=== PATIENT | male | born 1940 | race Caucasian/White ===

== ENCOUNTER 2020-01-24 12:29 | Inpatient (IN) | payer OTHER ==
[2020-01-24] MEDS ORDERED: SODIUM CHLORIDE 2,395 ML IV ONE (12:51)
[2020-01-24 13:17] LABS: VENOUS PC02 35.2 mmHg (38-52); VENOUS PH 7.46 (7.31-7.41); VENOUS PO2 < 49 mmHg (28-48)
[2020-01-24 13:18] LABS: BASO % 0.2 % (0-2.0); EOS % 0.4 % (0-4.5); HEMATOCRIT 38.6 % (35.4-49); LYMPH % 4.8 % (8-40); MCHC 33.5 g/dl (32.0-35.9); MEAN CELL VOLUME 86.3 fl (80-96); MEAN PLT VOLUME 10.7 fl (7.5-11.1); MONO % 6.1 % (3.8-10.2); NEUT % 88.5 % (42.8-82.8); PLATELET COUNT 150 K/MM3 (134-434); RBC 4.48 M/mm3 (4.00-5.60); RDW 14.9 % (11.9-15.9); VENOUS BASE EXCESS 0.9 mmol/L (-2-2); WHITE BLOOD COUNT 12.8 K/mm3 (4.0-10.0)
[2020-01-24 13:25] LABS: INR 1.16 (0.83-1.09); PROTHROMBIN TIME (PATIENT) 13.7 SEC (9.7-13.0)
[2020-01-24 13:27] LABS: ACTIVATED PTT 28.5 SECONDS (25.2-36.5)
[2020-01-24 13:44] LABS: ALBUMIN 3.2 g/dl (3.4-5.0); ALK PHOS 93 U/L (45-117); ANION GAP 5 MMOL/L (8-16); BILIRUBIN,TOTAL 1.1 mg/dL (0.2-1); BLOOD UREA NITROGEN 22.1 mg/dL (7-18); CALCIUM 8.7 mg/dL (8.5-10.1); CHLORIDE 105 mmol/L (98-107); CO2 26 mmol/L (21-32); CREATININE 0.8 mg/dL (0.55-1.3); GLUCOSE,RANDOM 111 mg/dL (74-106); POTASSIUM 4.2 mmol/L (3.5-5.1); SGOT/AST 108 U/L (15-37); SGPT/ALT 107 U/L (13-61); SODIUM 136 mmol/L (136-145); TOT PROT 6.6 g/dl (6.4-8.2)
[2020-01-24 14:04] LABS: URINE APPEARANCE CLEAR; URINE BILIRUBIN NEGATIVE (NEGATIVE); URINE COLOR DK YELLOW; URINE GLUCOSE (UA) NEGATIVE (NEGATIVE); URINE KETONE TRACE (NEGATIVE); URINE LEUK ESTERASE NEGATIVE (NEGATIVE); URINE NITRITE NEGATIVE (NEGATIVE); URINE PROTEIN TRACE (NEGATIVE)
[2020-01-24] MEDS ORDERED: CEFTRIAXONE 1 GM in DEXTROSE 5%-WATER - 100 ML IVPB ONE (14:09)
[2020-01-24] MEDS ORDERED: DOXYCYCLINE HYCLATE 100 MG CAPSULE PO ONE ×2 (14:09→14:40)
[2020-01-24] MEDS ORDERED: AZITHROMYCIN 250 MG TABLET PO ONE (14:09)
[2020-01-24] MEDS ORDERED: AZITHROMYCIN 250 MG TABLET ONE (14:39)
[2020-01-24] MEDS ORDERED: CEFTRIAXONE 1 GM/50 ML BAG ONE (14:40)
[2020-01-24 14:41] LABS: LDH 293 U/L (87-246)
[2020-01-24] MEDS ORDERED: ACETAMINOPHEN 325 MG TABLET (FP) PO PRN (15:43)
[2020-01-24] MEDS: SODIUM CHLORIDE 1,000 ML IV SCH (15:48)
[2020-01-24] MEDS ORDERED: ENOXAPARIN NA (PORCINE) 40 MG/0.4 ML DISP.SYRIN SQ ONE (16:08)
[2020-01-24] MEDS ORDERED: PIPERACILLIN/TAZOBACTAM 3.375 GM VIAL IVPB ONE (17:53)
[2020-01-24] MEDS ORDERED: DEXTROSE 5%-WATER - 50 ML IVPB ONE (17:53)
[2020-01-24] MEDS: PIPERACILLIN/TAZOB 3.375 GM 3.375 GM in DEXTROSE 5%-WATER - 50 ML IVPB SCH (18:05)
[2020-01-24] MEDS: ENOXAPARIN NA (PORCINE) 40 MG/0.4 ML DISP.SYRIN SQ SCH (18:40)
[2020-01-25] MEDS ORDERED: PIPERACILLIN/TAZOBACTAM 3.375 GM VIAL IVPB ONE ×3 (01:23→17:30)
[2020-01-25] MEDS ORDERED: DEXTROSE 5%-WATER - 50 ML IVPB ONE ×3 (01:24→17:30)
[2020-01-25] MEDS: PIPERACILLIN/TAZOB 3.375 GM 3.375 GM in DEXTROSE 5%-WATER - 50 ML IVPB SCH ×3 (01:57→17:37)
[2020-01-25 06:44] LABS: BASO % 0.1 % (0-2.0); EOS % 0.8 % (0-4.5); HEMATOCRIT 37.6 % (35.4-49); HEMOGLOBIN 12.7 GM/dL (11.7-16.9); LYMPH % 3.2 % (8-40); MCH 29.2 pg (25.7-33.7); MCHC 33.7 g/dl (32.0-35.9); MEAN CELL VOLUME 86.6 fl (80-96); MONO % 4.6 % (3.8-10.2); NEUT % 91.3 % (42.8-82.8); PLATELET COUNT 125 K/MM3 (134-434); RBC 4.34 M/mm3 (4.00-5.60); RDW 14.8 % (11.9-15.9); WHITE BLOOD COUNT 9.1 K/mm3 (4.0-10.0)
[2020-01-25 07:13] LABS: ALBUMIN 2.7 g/dl (3.4-5.0); BILIRUBIN,TOTAL 0.9 mg/dL (0.2-1); BLOOD UREA NITROGEN 15.6 mg/dL (7-18); CALCIUM 8.6 mg/dL (8.5-10.1); CREATININE 0.8 mg/dL (0.55-1.3); MAGNESIUM 2.1 mg/dL (1.8-2.4); PHOSPHOROUS 3.6 mg/dL (2.5-4.9); POTASSIUM 3.9 mmol/L (3.5-5.1)
[2020-01-25] MEDS ORDERED: CEFTRIAXONE 1 GM in DEXTROSE 5%-WATER - 50 ML IVPB SCH (10:00)
[2020-01-25] MEDS ORDERED: AZITHROMYCIN IVPB 500 MG/250 ML BAG IVPB SCH (10:00)
[2020-01-25 10:02] LABS: ANISOCYTOSIS 0; HELMET CELLS 0; HOWELL-JOLLY BODIES 0; MACROCYTOSIS 0; OVALOCYTE 0; PLATELET ESTIMATE DECREASED; ROULEAU 0; SICKELED CELLS 0; TARGET CELLS 0; TEAR DROP CELLS 0; TOXIC GRANULATION 0
[2020-01-25] MEDS: ENOXAPARIN NA (PORCINE) 40 MG/0.4 ML DISP.SYRIN SQ SCH (10:40)
[2020-01-25] MEDS: SODIUM CHLORIDE 1,000 ML IV SCH (17:39)
[2020-01-25 23:30] VITALS: BP 121/52; PULSE 82; TEMP 98.3
[2020-01-29 12:47] VITALS: BMI 28.0
== END 2020-01-25 22:45 | disposition left against medical advice (07) | DRG 194 ==
LOC: JER 12:29 → JERBED 14:12 → J4S 17:49
PROVIDERS: ADMIT Internal Medicine; ATTEND Internal Medicine
DX: J18.9 Pneumonia, unspecified organism (principal); A69.20 Lyme disease, unspecified; H91.90 Unspecified hearing loss, unspecified ear; R94.5 Abnormal results of liver function studies
CPT/HCPCS: 36415; 71045-TC-FY; 80053; 81003; 82728; 82803; 83605; 83615; 83735; 84100; 84484; 85025; 85379; 85610; 85651; 85730; 86140; 86618; 87040; 87086; 87476; 87899; 93005; 93010; 99285-25; U0003

== ENCOUNTER 2020-03-15 09:48 | Day surgery (SDC) | payer OTHER ==
[2020-03-14 18:01] VITALS: BMI 24.0
[2020-03-15 13:33] VITALS: BP 128/85; PULSE 68; TEMP 97.5
[2020-03-15 14:33] LABS: BF WBC & OTHER NUCLEATED CELLS 3707 /mm3
[2020-03-15 15:23] LABS: BODY FLUID BASOPHIL 4 %; BODY FLUID MONOCYTE 36 %; BODYL FLD EOSINOPHIL 41 %
[2020-03-16 14:07] LABS: BODY FLUID ALBUMIN 2.7 g/dL (Not Estab.)
--- NOTE | 2020-03-20 13:32 | PATH ---
Cytology Non-Gynecological Report Patient Name: MATY HORTA [facility]. Rec. #: [id number] /Age/Gender: 1940 (Age: 79) / M Account: [id number] Location: RADIOLOGY INTER Taken: 03/15/2020 Received: 03/16/2020 Reported: 03/20/2020 Physicians: Kamini Johnston M.D. Specimen(s) Received A: PLEURAL FLUID RECEIVED IN 50% B: PLEURAL FLUID RECEIVED FRESH Clinical History Pleural effusion Final Diagnosis A&B: PLEURAL FLUID, THORACENTESIS: SATISFACTORY FOR EVALUATION NO MALIGNANT CELLS IDENTIFIED. MESOTHELIAL CELLS, HISTIOCYTES AND PREDOMINANTLY CHRONIC INFLAMMATORY CELLS INCLUDING MANY EOSINOPHILS PRESENT. Electronically Signed Tom Hoover M.D. Gross Description A. Approximately 30cc of yellow fluid received fixed in 50% alcohol. One cytospin and one cellblock prepared. B. Approximately 800cc of yellow fluid received fresh. One cytospin and one cellblock prepared.
== END 2020-03-15 13:50 | disposition home or self-care (01) ==
LOC: JRADIR 09:48
PROVIDERS: ATTEND Internal Medicine
PROC: 0W993ZZ Drainage of Right Pleural Cavity, Percutaneous Approach (ICD-10-PCS; principal; 2020-03-15)
DX: J90 Pleural effusion, not elsewhere classified (principal)
CPT/HCPCS: 36415; 71045-TC-FY; 76942; 82042; 82150; 82465; 82945; 83615; 84157; 87070; 87075; 87102; 87116; 87205; 87206; 87210; 88108; 88305-TC

== ENCOUNTER 2021-04-09 11:55 | Emergency (ER) | payer OTHER ==
[2021-04-10 14:09] LABS: SARS-CoV-2 NAA Detected (Not Detected)
== END 2021-04-09 12:17 | disposition home or self-care (01) ==
LOC: JVIRT 11:55
DX: R50.9 Fever, unspecified (principal); R07.0 Pain in throat; Z11.52 Encounter for screening for COVID-19
CPT/HCPCS: C9803; Q3014-GT; U0003; U0005

== ENCOUNTER 2021-04-10 15:53 | Emergency (ER) | payer OTHER ==
[2021-04-10] MEDS ORDERED: CASIRIVIMAB/IMDEVIMAB 10 ML in SODIUM CHLORIDE 100 ML IVPB ONE (15:57)
[2021-04-10] MEDS ORDERED: ACETAMINOPHEN 1000 MG/100 ML VIAL (NON FORMULARY) IVPB ONE (16:13)
[2021-04-10] MEDS ORDERED: SODIUM CHLORIDE 1,000 ML IV STA (16:13)
[2021-04-10] MEDS ORDERED: ACETAMINOPHEN INJECTION 100 ML IVPB ONE (16:16)
[2021-04-10 16:35] VITALS: BMI 23.2
[2021-04-10 16:43] LABS: BASO % 1.1 % (0-2.0); EOS % 0.5 % (0-4.5); HEMATOCRIT 39.7 % (35.4-49); HEMOGLOBIN 13.2 GM/dl (11.7-16.9); LYMPH % 15.2 % (8-40); MCH 28.6 pg (25.7-33.7); MCHC 33.3 g/dl (32.0-35.9); MEAN CELL VOLUME 85.9 fl (80-96); MEAN PLT VOLUME 9.8 fl (7.5-11.1); MONO % 6.3 % (3.8-10.2); NEUT % 76.9 % (42.8-82.8); PLATELET COUNT 132 10^3/uL (134-434); RBC 4.62 M/mm3 (4.00-5.60); WHITE BLOOD COUNT 3.8 K/mm3 (4.0-10.8)
[2021-04-10 16:58] LABS: ALBUMIN 3.2 g/dl (3.4-5.0); BILIRUBIN,TOTAL 0.8 mg/dl (0.2-1); CALCIUM 8.3 mg/dl (8.5-10); CREATININE 0.8 mg/dl (0.55-1.3); TOT PROT 6.2 g/dl (6.4-8.2)
[2021-04-10 19:44] VITALS: BP 103/66; PULSE 60; TEMP 98.5
== END 2021-04-10 19:30 | disposition home or self-care (01) ==
LOC: FER 15:53
PROC: 3E033GC Introduction of Other Therapeutic Substance into Peripheral Vein, Percutaneous Approach (ICD-10-PCS; principal; 2021-04-10)
DX: U07.1 COVID-19 (principal)
CPT/HCPCS: 36415; 71045-TC-FY; 80053; 85025; 99284-25; J0131; M0240; Q0240

== ENCOUNTER 2021-07-03 13:54 | Emergency (ER) | payer OTHER ==
[2021-07-03 14:02] VITALS: BP 151/91; PULSE 80; TEMP 98; BMI 23.4
== END 2021-07-03 16:49 | disposition home or self-care (01) ==
LOC: FER 13:54
DX: N50.812 Left testicular pain (principal)
CPT/HCPCS: 72170-TC-FY; 76870-TC; 99284-25

== ENCOUNTER 2022-01-05 17:54 | Emergency (ER) | payer OTHER ==
[2022-01-05 18:16] VITALS: BP 103/67; PULSE 70; TEMP 98.1; BMI 22.4
== END 2022-01-05 20:09 | disposition home or self-care (01) ==
LOC: FER 17:54
DX: R22.42 Localized swelling, mass and lump, left lower limb (principal)
CPT/HCPCS: 73562-TC-LT-FY; 93971-TC; 99284-25

== ENCOUNTER 2024-05-09 07:41 | Inpatient (IN) | payer OTHER ==
[2024-05-09 08:00] VITALS: BMI 23.0
[2024-05-09] MEDS ORDERED: ACETAMINOPHEN INJECTION 100 ML ONE ×2 (08:17→19:03)
[2024-05-09] MEDS ORDERED: ONDANSETRON 4 MG/2 ML VIAL ONE ×2 (09:10→16:48)
[2024-05-09] MEDS: SODIUM CHLORIDE 0.9% 500 ML INFUS.BAG IV ONE (09:15)
[2024-05-09] MEDS: ONDANSETRON 4 MG/2 ML VIAL IVPUSH ONE (09:15)
[2024-05-09] MEDS: ACETAMINOPHEN 1000 MG/100 ML BAG IVPB ONE (09:15)
[2024-05-09 09:39] LABS: BASO % 0.5 % (0-2.0); EOS % 1.6 % (0-4.5); HEMATOCRIT 38.4 % (35.4-49); LYMPH % 10.6 % (8-40); MCH 29.5 pg (25.7-33.7); MCHC 33.8 g/dl (32.0-35.9); MEAN CELL VOLUME 87.3 fl (80-96); MEAN PLT VOLUME 9.7 fl (7.5-11.1); MONO % 6.5 % (3.8-10.2); NEUT % 80.8 % (42.8-82.8); PLATELET COUNT 187 10^3/uL (134-434); RDW 13.7 % (11.9-15.9); WHITE BLOOD COUNT 6.4 K/mm3 (4.0-10.0)
[2024-05-09 09:55] LABS: POTASSIUM 4.8 mmol/L (3.5-5.1)
[2024-05-09 09:58] LABS: ALBUMIN 3.4 g/dl (3.4-5.0); BLOOD UREA NITROGEN 24.1 mg/dL (7-18); CALCIUM 9.2 mg/dL (8.5-10.1)
[2024-05-09 10:02] LABS: CREATININE 0.7 mg/dL (0.55-1.3)
[2024-05-09 10:03] LABS: BILIRUBIN,TOTAL 0.8 mg/dL (0.2-1)
[2024-05-09 14:27] LABS: INR 1.09 (0.83-1.09); PROTHROMBIN TIME (PATIENT) 12.5 SEC (9.7-13.0)
[2024-05-09 14:30] LABS: ACTIVATED PTT 32.6 SECONDS (25.2-36.5)
[2024-05-09] MEDS ORDERED: ACETAMINOPHEN 1000 MG/100 ML BAG IVPB PRN (14:45)
[2024-05-09] MEDS ORDERED: ONDANSETRON 4 MG/2 ML VIAL IVPUSH PRN ×4 (14:45→19:06)
[2024-05-09] MEDS: DEXTROSE 5%-NORMAL SALINE 1,000 ML IV SCH (15:45)
[2024-05-09] MEDS ORDERED: oxyCODONE HCL 5 MG TABLET PO PRN ×3 (16:35→19:06)
[2024-05-09] MEDS ORDERED: LACTATED RINGERS SOLUTION 1,000 ML IV SCH ×2 (16:45→19:06)
[2024-05-09] MEDS ORDERED: ROCURONIUM BROMIDE 50 MG/5 ML SYRINGE ONE (16:48)
[2024-05-09] MEDS ORDERED: LIDOCAINE HCL/PF 2% SDV 5ML VIAL ONE (16:48)
[2024-05-09] MEDS ORDERED: DEXAMETHASONE SOD PHOSPHATE 4 MG/1 ML VIAL ONE (16:48)
[2024-05-09] MEDS ORDERED: HYDROmorphone HCl 2 MG/ML VIAL ONE (16:48)
[2024-05-09] MEDS ORDERED: ceFAZolin SODIUM 1 GM VIAL ONE (16:48)
[2024-05-09] MEDS ORDERED: MIDAZOLAM HCL 2 MG/2 ML SINGLE DOSE VIAL ONE (16:48)
[2024-05-09] MEDS ORDERED: SEVOFLURANE 250 ML BTL ONE (16:49)
[2024-05-09] MEDS ORDERED: PROPOFOL 20 ML ONE (16:59)
[2024-05-09] MEDS: ceFAZolin SODIUM 1 GM VIAL IVPB ONE (17:12)
[2024-05-09] MEDS ORDERED: SUGAMMADEX SODIUM 200 MG/2 ML VIAL ONE (17:20)
[2024-05-09] MEDS ORDERED: KETOROLAC TROMETHAMINE 30 MG/1 ML VIAL ONE (17:22)
[2024-05-09] MEDS: BUPIVACAINE HCL/PF 0.25% (2.5MG/ML) 10 ML VIAL IJ ONE ×3 (18:20)
[2024-05-09] MEDS: LIDOCAINE HCL 1%, 10 MG/ML (20ML VIAL) INF ONE ×3 (18:20)
[2024-05-09] MEDS: ACETAMINOPHEN 1000 MG/100 ML BAG IVPB SCH (19:24)
[2024-05-09 20:23] VITALS: RESP 18
[2024-05-10] MEDS ORDERED: KETOROLAC TROMETHAMINE 30 MG/1 ML VIAL IM PRN
[2024-05-10] MEDS ORDERED: ACETAMINOPHEN 1000 MG/100 ML BAG IVPB SCH (00:45)
[2024-05-10] MEDS: ACETAMINOPHEN 1000 MG/100 ML BAG IVPB SCH (02:08)
[2024-05-10 09:11] VITALS: TEMP 97.9
[2024-05-10] MEDS: DEXTROSE 5%-NORMAL SALINE 1,000 ML IV SCH (09:15)
[2024-05-10 09:48] LABS: BASO % 0.2 % (0-2.0); EOS % 0.4 % (0-4.5); HEMATOCRIT 37.3 % (35.4-49); HEMOGLOBIN 12.8 GM/dL (11.7-16.9); LYMPH % 7.9 % (8-40); MCH 29.8 pg (25.7-33.7); MCHC 34.2 g/dl (32.0-35.9); MEAN CELL VOLUME 87.3 fl (80-96); NEUT % 85.5 % (42.8-82.8); PLATELET COUNT 185 10^3/uL (134-434); RBC 4.28 M/mm3 (4.00-5.60); RDW 13.7 % (11.9-15.9); WHITE BLOOD COUNT 8.7 K/mm3 (4.0-10.0)
[2024-05-10 09:58] LABS: ALBUMIN 2.9 g/dl (3.4-5.0); BLOOD UREA NITROGEN 17.3 mg/dL (7-18); CALCIUM 8.9 mg/dL (8.5-10.1)
[2024-05-10 10:02] LABS: CREATININE 0.6 mg/dL (0.55-1.3)
[2024-05-10 10:04] LABS: BILIRUBIN,TOTAL 0.8 mg/dL (0.2-1); TOT PROT 6.5 g/dl (6.4-8.2)
[2024-05-10] MEDS ORDERED: ACETAMINOPHEN 500 MG TABLET (FP) PO PRN (12:30)
[2024-05-10 13:10] VITALS: BP 110/57; PULSE 64
[2024-05-10] MEDS: LIDOCAINE 5% TOPICAL PATCH TP SCH (14:16)
[2024-05-10] MEDS: oxyCODONE HCL 5 MG TABLET PO PRN (17:22)
[2024-05-10] MEDS ORDERED: LIDOCAINE PATCH REMOVAL MC SCH (22:00)
== END 2024-05-10 18:12 | disposition home or self-care (01) | DRG 352 ==
LOC: JER 07:41 → JERBED 13:12 → J8W 20:06
PROVIDERS: ADMIT Internal Medicine; ATTEND Nurse Practitioner Acute Care
PROC: 0YU60JZ Supplement Left Inguinal Region with Synthetic Substitute, Open Approach (ICD-10-PCS; principal; 2024-05-09 15:00)
DX: K40.30 Unilateral inguinal hernia, with obstruction, without gangrene, not specified as recurrent (principal)
CPT/HCPCS: 36415; 74177-TC; 80053; 83605; 83690; 84484; 85025; 85610; 85730; 86850; 86900; 86901; 88302-TC; 93005; 93010; 94760; 99285-25; C1781; J0131; Q9967